=== PATIENT | male | born 1960 | race Caucasian/White ===

== ENCOUNTER 2022-11-21 16:56 | Inpatient (IN) | payer OTHER, SELFPAY ==
[2022-11-21] VITALS (62 sets, daily range): BP systolic 135–189; BP diastolic 88–128; PULSE 88–114; RESP 9–50; TEMP 37.1; O2SAT 67–98; BMI 31.2; BMI 31.6
--- NOTE | 2022-11-21 17:13 | ECG_ITS ---
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
--- NOTE | 2022-11-21 17:13 | XR_ITS ---
The [address] [address] Patient Name: JIM BOOTH MRN: [id number] date: 1960 Sex: M Assigned Patient Location: ED.MAIN Current Patient Location: ER Accession/Order Number: [id number] Exam Date: 11/21/2022 17:40 Report Date: 11/21/2022 17:56 At the request of: WILLOW DAVILA Procedure: XR chest 1V EXAMINATION: XR chest 1V HISTORY: Shortness of breath COMPARISON: Chest x-rays 09/23/2021 TECHNIQUE: Portable chest FINDINGS: The lung parenchyma is free of consolidation or infiltrate. No pneumothorax or pleural effusion. The cardiac, mediastinal and hilar contours are normal. The visualized osseous structures exhibit no gross abnormality. XR/XR chest 1V IMPRESSION: No acute cardiopulmonary abnormality. Electronically authenticated by: NIMA MADSEN Date: 11/21/2022 17:56
--- NOTE | 2022-11-21 17:17 | ED.SOB1 ---
HPI - SOB/Dyspnea General Chief Complaint: Shortness of Breath/Dyspnea Stated Complaint: SOB Time Seen by Provider: 11/21/22 17:05 Source: patient Mode of arrival: Wheelchair Limitations: no limitations History of Present Illness HPI Narrative: patient is a 61-year-old male presents to the Emergency Room with his daughter and brother for evaluation of shortness of breath. Patient recently retired, had a family member eight weeks ago unexpectedly and has been noticing a decline in his health. Patient reports a 30 pound weight loss, increased shortness of breath with activity. He was previously on a inhaler for chronic obstructive pulmonary disease but has been out of this for some time and still smokes more than one pack per day. Patient presents with profound fatigue and shortness of breath on exertion. He denies any current pain or discomfort. Daughter at bedside notes some confusion and home pulse oximetry read very low compared to her own which required a lot of talking the patient into coming in being seen. patient appears hypoxic with increased work of breathing, dusky cool skin..patient admits to having some sinus congestion within the past few weeks. MD elicited complaint: shortness of breath and cough Pertinent past history: COPD Context: recent illness Severity: mild Exacerbating factors: movement (any activity) and stress Relieving factors: nothing Known history of: COPD Related Data Home Medications Medication Instructions Recorded Confirmed No Known Home Medications 11/21/22 11/21/22 Allergies Allergy/AdvReac Type Severity Reaction Status Date / Time Penicillins Allergy Unknown Verified 11/21/22 17:25 Review of Systems ROS Constitutional Reports: change in weight and fatigue; Denies: fever or chills Eyes Denies: change in vision, blurry vision, blind spots or light sensitivity Ears, nose, mouth, and throat Denies: throat pain or neck pain Cardiovascular Reports: edema, shortness of breath when lying down and bluish discoloration of hands/feet; Denies: chest pain or palpitations Respiratory Reports: shortness of breath, cough and wheezing; Denies: pain on inspiration Gastrointestinal Denies: abdominal pain, nausea or vomiting Musculoskeletal Denies: back pain or neck pain Integumentary/Breast Denies: rash or itching Neurological Reports: confusion; Denies: headache Psychiatric Denies: anxiety or mood swings Endocrine Denies: excessive urination [facility] Social History (Updated 11/21/22 @ 23:52 by Christal Atwood) Smoking status: Heavy tobacco smoker Do you think of yourself as: straight/heterosexual Gender Identity: male Exam Narrative Exam Narrative: Nurses notes and vital signs reviewed and patient is hypoxic General: The patient appears well and in no apparent distress. Patient is resting comfortably on cart. Skin: cool pale dusky appearance of skin, bluish tint to hands and feet and nose with telangectasias and notable tobacco staining to his mustache Head: Normocephalic, atraumatic Neck: Supple, trachea mid-line, no tenderness, no lymphadenopathy Eye: Pupils are equal, round and reactive to light, EOMI Ears, Nose, Mouth, and Throat: TM are clear, normal light reflex, oral mucosa is moist, no posterior oropharynx erythema or hypertrophy, uvula is mid-line Cardiovascular: tachycardic Respiratory: no accessory muscle use diffuse expiratory and has notable inspiratory and expiratory wheezing. Chest Wall: no tenderness Back: non-tender, no CVA tenderness Musculoskeletal: normal ROM, no tenderness, minimal edema in the lower legs. GI: Normal bowel sounds, no tenderness to palpation, no masses appreciated. No rebound, guarding, or rigidity noted. Neurological: A&O x4, recalls recent history of caring for family and of family member 8 wks ago. Psychiatric: Cooperative Constitutional Vital Signs, click to edit/add: Last Vital Signs Temp 98.7 F 11/21/22 23:02 Pulse 72 11/22/22 04:30 Resp 16 11/22/22 04:30 BP 110/79 11/22/22 04:30 Pulse Ox 94 L 11/22/22 04:30 O2 Del Method BIPAP 11/21/22 23:13 O2 Flow Rate 4 11/21/22 17:39 FiO2 40 11/22/22 04:30 Course Vital Signs Vital signs: Vital Signs Pulse Rate 114 H 11/21/22 17:08 Respiratory Rate 20 11/21/22 17:08 Blood Pressure 149/106 H 11/21/22 17:08 Pulse Oximetry 68 L 11/21/22 17:08 Oxygen Delivery Method Room Air 11/21/22 17:08 Temperature 98.7 F 11/21/22 23:02 Pulse Rate 72 11/22/22 04:30 Respiratory Rate 16 11/22/22 04:30 Blood Pressure 110/79 11/22/22 04:30 Pulse Oximetry 94 L 11/22/22 04:30 Oxygen Delivery Method BIPAP 11/21/22 23:13 Oxygen Delivery Flow Rate 4 11/21/22 17:39 Fraction of Inspired Oxygen 40 11/22/22 04:30 MDM - SOB/Dyspnea MDM Narrative Medical decision making narrative: clinical presentation concerning for acute on chronic chronic obstructive pulmonary disease exacerbation. Patient not taking home inhaler, chronic smoking abuse, patient has had significant weight loss. Since retiring patient's health has significantly declined... Patient given DuoNeb and albuterol. Solu-Medrol 125 mg IV. Patient placed on oxygen 4 L/m nasal cannula. Patient noting improvement in his breathing after treatments. Pulse oximetry stayed at 90%, compared to 64% on arrival. Patient had chest x-ray without evidence of infiltrate or mass. We discussed his laboratory studies noted for ABG pH is 7.193, elevated lactic 3.0, PCO2 was 80.4. He was hyponatremic at one twenty-one, and troponin was elevated at 149.8 along with BNP of eleven thousand four twenty-five. Patient does not appear to be fluid retaining and was given a 1 L IV fluid bolus for his hyponatremia. Patient adamant about not being admitted to the hospital, bedside conversation with Dr. layton discussing today's findings with concern of if patient signs out against medical advice. The patient agrees to stay at this hospital facility but would not accept a transfer to any other facility at this time. He declines transfer to tertiary facility. This case will be discussed with the hospitalist for admission and at some point likely pulmonary consult given the chronicity chronic obstructive pulmonary disease, untreated and tobacco abuse contributing to his symptoms with acute exacerbation. Hospitalist paged by Dr. Layton, Dr. Falcon will discuss admission Lab Data Attestation: I reviewed the patient's lab results. Labs: Lab Results 11/21/22 11/21/22 11/21/22 Range/Units 17:25 17:40 17:58 WBC 5.6 (4.0-11.0) 10^3/uL RBC 5.69 (4.70-6.10) 10^6/uL Hgb 18.6 H (14.0-18.0) g/dL Hct 57.4 H (42.0-54.0) % MCV 100.9 H (80.0-94.0) fL MCH 32.7 (25.9-34.0) pg MCHC 32.4 (29.9-35.2) g/dL RDW 13.3 (11.0-15.0) % Plt Count 210 (150-450) 10^3/uL MPV 9.9 (9.5-13.5) fL Neut % (Auto) 65.1 (43.0-75.0) % Lymph % (Auto) 17.1 L (20.5-60.0) % [place] % (Auto) 14.2 H (1.7-12.0) % Eos % (Auto) 2.7 (0.9-7.0) % Baso % (Auto) 0.5 (0.2-2.0) % Neut # (Auto) 3.6 (1.4-6.5) 10^3/uL Lymph # (Auto) 1.0 L (1.2-3.8) 10^3/uL [place] # (Auto) 0.8 (0.3-0.8) 10^3/uL Eos # (Auto) 0.2 (0.0-0.7) 10^3/uL Baso # (Auto) 0.0 (0.0-0.1) 10^3/uL Abs Immat Gran (auto) 0.02 (0.00-0.03) 10^3/uL Imm/Tot Granulo (auto) 0.4 (0.0-0.5) % PT 12.0 H (9.0-11.6) sec INR 1.14 APTT 30.9 (22.3-36.2) sec D-Dimer 2.49 H* (<=0.59) mg/L FEU Puncture Site Rr ABG pH 7.193 L* (7.350-7.450) ABG pCO2 88.4 H* (35.0-45.0) mmHg ABG pO2 93.1 (80.0-100.0) mmHg ABG HCO3 33.9 H (22.0-26.0) mmol/L ABG O2 Saturation 96.0 % ABG Base Excess 5.8 H (-2.0-2.0) mmol/L Bogdan Test Positive (POSITIVE) O2 Liters/Min 4 Sodium 121 L* (136-145) mmol/L Potassium 4.8 (3.5-5.1) mmol/L Chloride 84 L* (98-107) mmol/L Carbon Dioxide 33.2 H (21.0-32.0) mmol/L Anion Gap 8.6 BUN 33.0 H (7.0-18.0) mg/dL Creatinine 1.25 (0.70-1.30) mg/dL Est GFR ( Amer) >60 (>=60) Est GFR (Non-Af Amer) 59 L (>=60) BUN/Creatinine Ratio 26.4 Glucose 128 H (74-106) mg/dL Lactate 3.0 H* (0.4-2.0) mmol/L Calcium 8.5 (8.5-10.1) mg/dL Total Bilirubin 0.9 (0.2-1.0) mg/dL AST 64 H (15-37) U/L ALT 66 H (16-63) U/L Alkaline Phosphatase 74 (46-116) U/L Troponin I High Sens 149.8 H* (4.0-76.1) pg/mL NT-Pro-B Natriuret Pep 02325.0 H* (<=900.0) pg/mL Total Protein 7.7 (6.4-8.2) g/dL Albumin 3.7 (3.4-5.0) g/dL Globulin 4.0 g/dL Albumin/Globulin Ratio 0.9 Urine Color (YELLOW) Urine Clarity (CLEAR) Urine pH (5.0-9.0) Ur Specific [place] (1.005-1.025) Urine Protein (NEG/TRACE) mg/dL Urine Glucose (UA) (NEGATIVE) mg/dL Urine Ketones (NEGATIVE) mg/dL Urine Occult Blood (NEGATIVE) Urine Nitrite (NEGATIVE) Urine Bilirubin (NEGATIVE) Urine Urobilinogen (0.2-1.0) EU/dL Ur Leukocyte Esterase (NEGATIVE) Urine RBC (0-2) #/HPF Urine WBC (NONE SEEN) #/HPF Ur Squamous Epith Cells (NONE/RARE) #/LPF Urine Crystals (None Seen) #/HPF Urine Bacteria (NONE SEEN) #/HPF Urine Casts (NONE SEEN) #/LPF Hyaline Casts Fine Granular Casts Waxy Casts Urine Mucus (NONE SEEN) Ur Culture Indicated? SARS-CoV-2 (PCR) Negative (NEGATIVE) Influenza Type A Ag Negative Influenza Type B Ag Negative SARS-CoV-2 RNA (ANTIONE) Not detected (NOT DETECTE) POC Glucose (74-106) mg/dL 11/21/22 11/21/22 11/21/22 Range/Units 19:20 19:23 20:25 WBC (4.0-11.0) 10^3/uL RBC (4.70-6.10) 10^6/uL Hgb (14.0-18.0) g/dL Hct (42.0-54.0) % MCV (80.0-94.0) fL MCH (25.9-34.0) pg MCHC (29.9-35.2) g/dL RDW (11.0-15.0) % Plt Count (150-450) 10^3/uL MPV (9.5-13.5) fL Neut % (Auto) (43.0-75.0) % Lymph % (Auto) (20.5-60.0) % [place] % (Auto) (1.7-12.0) % Eos % (Auto) (0.9-7.0) % Baso % (Auto) (0.2-2.0) % Neut # (Auto) (1.4-6.5) 10^3/uL Lymph # (Auto) (1.2-3.8) 10^3/uL [place] # (Auto) (0.3-0.8) 10^3/uL Eos # (Auto) (0.0-0.7) 10^3/uL Baso # (Auto) (0.0-0.1) 10^3/uL Abs Immat Gran (auto) (0.00-0.03) 10^3/uL Imm/Tot Granulo (auto) (0.0-0.5) % PT (9.0-11.6) sec INR APTT (22.3-36.2) sec D-Dimer (<=0.59) mg/L FEU Puncture Site ABG pH (7.350-7.450) ABG pCO2 (35.0-45.0) mmHg ABG pO2 (80.0-100.0) mmHg ABG HCO3 (22.0-26.0) mmol/L ABG O2 Saturation % ABG Base Excess (-2.0-2.0) mmol/L Bogdan Test (POSITIVE) O2 Liters/Min Sodium (136-145) mmol/L Potassium (3.5-5.1) mmol/L Chloride (98-107) mmol/L Carbon Dioxide (21.0-32.0) mmol/L Anion Gap BUN (7.0-18.0) mg/dL Creatinine (0.70-1.30) mg/dL Est GFR ( Amer) (>=60) Est GFR (Non-Af Amer) (>=60) BUN/Creatinine Ratio Glucose (74-106) mg/dL Lactate 1.2 (0.4-2.0) mmol/L Calcium (8.5-10.1) mg/dL Total Bilirubin (0.2-1.0) mg/dL AST (15-37) U/L ALT (16-63) U/L Alkaline Phosphatase (46-116) U/L Troponin I High Sens 138.4 H* (4.0-76.1) pg/mL NT-Pro-B Natriuret Pep (<=900.0) pg/mL Total Protein (6.4-8.2) g/dL Albumin (3.4-5.0) g/dL Globulin g/dL Albumin/Globulin Ratio Urine Color (YELLOW) Urine Clarity (CLEAR) Urine pH (5.0-9.0) Ur Specific [place] (1.005-1.025) Urine Protein (NEG/TRACE) mg/dL Urine Glucose (UA) (NEGATIVE) mg/dL Urine Ketones (NEGATIVE) mg/dL Urine Occult Blood (NEGATIVE) Urine Nitrite (NEGATIVE) Urine Bilirubin (NEGATIVE) Urine Urobilinogen (0.2-1.0) EU/dL Ur Leukocyte Esterase (NEGATIVE) Urine RBC (0-2) #/HPF Urine WBC (NONE SEEN) #/HPF Ur Squamous Epith Cells (NONE/RARE) #/LPF Urine Crystals (None Seen) #/HPF Urine Bacteria (NONE SEEN) #/HPF Urine Casts (NONE SEEN) #/LPF Hyaline Casts Fine Granular Casts Waxy Casts Urine Mucus (NONE SEEN) Ur Culture Indicated? SARS-CoV-2 (PCR) (NEGATIVE) Influenza Type A Ag Influenza Type B Ag SARS-CoV-2 RNA (ANTIONE) (NOT DETECTE) POC Glucose 126 H (74-106) mg/dL 11/21/22 Range/Units 21:10 WBC (4.0-11.0) 10^3/uL RBC (4.70-6.10) 10^6/uL Hgb (14.0-18.0) g/dL Hct (42.0-54.0) % MCV (80.0-94.0) fL MCH (25.9-34.0) pg MCHC (29.9-35.2) g/dL RDW (11.0-15.0) % Plt Count (150-450) 10^3/uL MPV (9.5-13.5) fL Neut % (Auto) (43.0-75.0) % Lymph % (Auto) (20.5-60.0) % [place] % (Auto) (1.7-12.0) % Eos % (Auto) (0.9-7.0) % Baso % (Auto) (0.2-2.0) % Neut # (Auto) (1.4-6.5) 10^3/uL Lymph # (Auto) (1.2-3.8) 10^3/uL [place] # (Auto) (0.3-0.8) 10^3/uL Eos # (Auto) (0.0-0.7) 10^3/uL Baso # (Auto) (0.0-0.1) 10^3/uL Abs Immat Gran (auto) (0.00-0.03) 10^3/uL Imm/Tot Granulo (auto) (0.0-0.5) % PT (9.0-11.6) sec INR APTT (22.3-36.2) sec D-Dimer (<=0.59) mg/L FEU Puncture Site ABG pH (7.350-7.450) ABG pCO2 (35.0-45.0) mmHg ABG pO2 (80.0-100.0) mmHg ABG HCO3 (22.0-26.0) mmol/L ABG O2 Saturation % ABG Base Excess (-2.0-2.0) mmol/L Bogdan Test (POSITIVE) O2 Liters/Min Sodium (136-145) mmol/L Potassium (3.5-5.1) mmol/L Chloride (98-107) mmol/L Carbon Dioxide (21.0-32.0) mmol/L Anion Gap BUN (7.0-18.0) mg/dL Creatinine (0.70-1.30) mg/dL Est GFR ( Amer) (>=60) Est GFR (Non-Af Amer) (>=60) BUN/Creatinine Ratio Glucose (74-106) mg/dL Lactate (0.4-2.0) mmol/L Calcium (8.5-10.1) mg/dL Total Bilirubin (0.2-1.0) mg/dL AST (15-37) U/L ALT (16-63) U/L Alkaline Phosphatase (46-116) U/L Troponin I High Sens (4.0-76.1) pg/mL NT-Pro-B Natriuret Pep (<=900.0) pg/mL Total Protein (6.4-8.2) g/dL Albumin (3.4-5.0) g/dL Globulin g/dL Albumin/Globulin Ratio Urine Color Yellow (YELLOW) Urine Clarity Clear (CLEAR) Urine pH 5.5 (5.0-9.0) Ur Specific [place] >=1.030 A (1.005-1.025) Urine Protein >=300 A (NEG/TRACE) mg/dL Urine Glucose (UA) Negative (NEGATIVE) mg/dL Urine Ketones Negative (NEGATIVE) mg/dL Urine Occult Blood Moderate A (NEGATIVE) Urine Nitrite Negative (NEGATIVE) Urine Bilirubin Small A (NEGATIVE) Urine Urobilinogen 1.0 (0.2-1.0) EU/dL Ur Leukocyte Esterase Negative (NEGATIVE) Urine RBC 0-2 (0-2) #/HPF Urine WBC 0-2 A (NONE SEEN) #/HPF Ur Squamous Epith Cells Few A (NONE/RARE) #/LPF Urine Crystals None seen (None Seen) #/HPF Urine Bacteria Large A (NONE SEEN) #/HPF Urine Casts Seen A (NONE SEEN) #/LPF Hyaline Casts Many Fine Granular Casts Few Waxy Casts Rare Urine Mucus Moderate A (NONE SEEN) Ur Culture Indicated? Yes SARS-CoV-2 (PCR) (NEGATIVE) Influenza Type A Ag Influenza Type B Ag SARS-CoV-2 RNA (ANTIONE) (NOT DETECTE) POC Glucose (74-106) mg/dL ABG Data Attestation: I have reviewed the pertinent ABG results. Imaging Data Chest x-ray: Attestation: I have reviewed the pertinent imaging results. Radiologist's impression: Patient Name: JIM BOOTH MRN: [id number] date: 1960 Sex: M Assigned Patient Location: ED.MAIN Current Patient Location: ER Accession/Order Number: [id number] Exam Date: 11/21/2022 17:40 Report Date: 11/21/2022 17:56 At the request of: WILLOW DAVILA Procedure: XR chest 1V EXAMINATION: XR chest 1V HISTORY: Shortness of breath COMPARISON: Chest x-rays 09/23/2021 TECHNIQUE: Portable chest FINDINGS: The lung parenchyma is free of consolidation or infiltrate. No pneumothorax or pleural effusion. The cardiac, mediastinal and hilar contours are normal. The visualized osseous structures exhibit no gross abnormality. XR/XR chest 1V IMPRESSION: No acute cardiopulmonary abnormality. Electronically authenticated by: NIMA MADSEN Date: 11/21/2022 17:56 ECG Data Attestation: I personally reviewed and interpreted this ECG as follows: Interpretation: EKG interpretation: Emergency Department physician interpretation, sinus tachycardia, incomplete right bundle-branch block.no st elevation. axis indeterminate. Discharge Plan Discharge Chief Complaint: Shortness of Breath/Dyspnea Clinical Impression: Hyponatremia, Elevated troponin, Tobacco abuse, Hypoxia, Acute exacerbation of chronic obstructive pulmonary disease Patient Disposition: Admitted As Inpatient Time of Disposition Decision: 19:08 Condition: Fair Discharge Date/Time: 11/21/22 22:49
[2022-11-21] MEDS: IPRATROPIUM/ALBUTEROL SULFATE 3 ML AMPUL.NEB IH (17:37)
[2022-11-21] MEDS: ALBUTEROL SULFATE 2.5 MG/3 ML VIAL NEB IH (17:37)
[2022-11-21 17:46] LABS: Basophils Percent Auto 0.5 % (0.2-2.0); Eosinophils Absolute Auto 0.2 10^3/uL (0.0-0.7); Eosinophils Percent Auto 2.7 % (0.9-7.0); Hematocrit 57.4 % (42.0-54.0); Hemoglobin 18.6 g/dL (14.0-18.0); Immature Granulocytes Abs Auto 0.02 10^3/uL (0.00-0.03); Immature Granulocytes Pct Auto 0.4 % (0.0-0.5); Lymphocytes Percent Auto 17.1 % (20.5-60.0); Mean Corpuscular HGB Conc 32.4 g/dL (29.9-35.2); Mean Corpuscular Hemoglobin 32.7 pg (25.9-34.0); Mean Corpuscular Volume 100.9 fL (80.0-94.0); Mean Platelet Volume 9.9 fL (9.5-13.5); Monocytes Absolute Auto 0.8 10^3/uL (0.3-0.8); Monocytes Percent Auto 14.2 % (1.7-12.0); Neutrophils Absolute Auto 3.6 10^3/uL (1.4-6.5); Neutrophils Percent Auto 65.1 % (43.0-75.0); Platelet Count 210 10^3/uL (150-450); Red Blood Count 5.69 10^6/uL (4.70-6.10); Red Cell Distribution Width 13.3 % (11.0-15.0); White Blood Count 5.6 10^3/uL (4.0-11.0)
[2022-11-21] MEDS: METHYLPREDNISOLONE SOD SUCC PF 125 MG/2 ML VIAL IVP (17:47)
[2022-11-21 18:08] LABS: Influenza Virus A Antigen Negative; Influenza Virus B Antigen Negative; Internal Control Within Normal Limits; SARS-CoV-2 Ag NEGATIVE (NEGATIVE)
[2022-11-21 18:14] LABS: Alanine Aminotransferase 66 U/L (16-63); Albumin Globulin Ratio 0.9; Albumin Level 3.7 g/dL (3.4-5.0); Alkaline Phosphatase 74 U/L (46-116); Anion Gap 8.6; Aspartate Amino Transferase 64 U/L (15-37); BUN Creatinine Ratio 26.4; Bilirubin Total 0.9 mg/dL (0.2-1.0); Calcium 8.5 mg/dL (8.5-10.1); Carbon Dioxide 33.2 mmol/L (21.0-32.0); Estimated GFR (African America >60 (>=60); Estimated GFR (Non-African Ame 59 (>=60); Glucose 128 mg/dL (74-106); Potassium 4.8 mmol/L (3.5-5.1); Total Protein 7.7 g/dL (6.4-8.2)
[2022-11-21 18:16] LABS: Chloride 84 mmol/L (98-107); Troponin I High Sensitivity 149.8 pg/mL (4.0-76.1)
[2022-11-21 18:17] LABS: Sodium 121 mmol/L (136-145)
[2022-11-21 18:17] LABS: ABG PCO2 88.4 mmHg (35.0-45.0); pH ABG 7.193 (7.350-7.450)
[2022-11-21 18:18] LABS: Allen Test POSITIVE (POSITIVE); Base Excess ABG 5.8 mmol/L (-2.0-2.0); HCO3 ABG 33.9 mmol/L (22.0-26.0); Liters per Minute 4; O2 Mode NC; PO2 ABG 93.1 mmHg (80.0-100.0); Puncture Site RR
[2022-11-21] MEDS: 0.9 % SODIUM CHLORIDE 1,000 ML 999 ML IV (18:35)
[2022-11-21] MEDS: NICOTINE 21 MG PATCH TD (19:15)
[2022-11-21 19:25] LABS: Glucometer 126 mg/dL (74-106)
[2022-11-21] MEDS: AZITHROMYCIN 500 MG in 0.9 % SODIUM CHLORIDE 250 ML 250 MG IV (19:32)
[2022-11-21] MEDS: CEFTRIAXONE 1,000 MG in 0.9 % SODIUM CHLORIDE 50 ML 100 MG IV (19:33)
[2022-11-21 19:41] LABS: INR 1.14; Partial Thromboplastin Time 30.9 sec (22.3-36.2)
[2022-11-21 19:43] LABS: D Dimer 2.49 mg/L FEU (<=0.59)
--- NOTE | 2022-11-21 19:43 | CT_ITS ---
The [address] [address] Patient Name: JIM BOOTH MRN: [id number] date: 1960 Sex: M Assigned Patient Location: ER Current Patient Location: Accession/Order Number: [id number] Exam Date: 11/21/2022 19:58 Report Date: 11/21/2022 21:29 At the request of: WILLOW DAVILA Procedure: CT angio chest EXAM: CT angio chest TECHNIQUE: CT angiogram with contrast performed of the chest including multi planar reformatted images and maximum intensity projection images. 3-D volume rendering created. Dose reduction techniques were achieved by using automated exposure control and/or adjustment of mA and/or kV according to patient size and/or use of iterative reconstruction technique. HISTORY: r/o pE elevated d-dimer COMPARISON: None. FINDINGS: Neck and Axilla: No lower neck or axillary lymphadenopathy. Mediastinum and Lisa: No hilar or mediastinal lymphadenopathy. The esophagus is grossly unremarkable without dilatation or gross mass lesion. Heart and Major Vessels: The heart appears unremarkable for size without pericardial effusion. The aorta and central pulmonary arteries are unremarkable for size.Evaluation of the pulmonary embolism is limited by breathing motion artifact. There is no convincing evidence for acute pulmonary embolism. Lung [place]: The lungs are clear of acute infiltrate or mass. Pleural Spaces: No significant pleural effusion. No pneumothorax. Upper Abdomen: No acute abnormality identified. Chest Wall: No acute abnormality. CT/CT angio chest IMPRESSION: No evidence for acute pulmonary embolism. Evaluation somewhat limited for distal pulmonary arteries due to motion artifact. No acute pulmonary consolidation Electronically authenticated by: BHARATHI VILLAFUERTE Date: 11/21/2022 21:29
[2022-11-21 19:49] LABS: Troponin I High Sensitivity 138.4 pg/mL (4.0-76.1)
--- NOTE | 2022-11-21 20:02 | PC.NURSE ---
on entry to patient room, patient is ill appearing, short of breath and sitting on edge of bed in tripod position. He is wearing oxygen at 4 liters per nasal cannula with SPo2 89-90%. Family is at bedside, states he is more tired than normal, he is confused and he has not been able to sleep for several days due to both shortness of breath and the stress of taking care of his . He had asked for a cigarette, but a nicotine patch was offered instead. He has reluctantly agreed to stay in the hospital for the night. He is offered food and water but has not taken in anything yet. He is moved to a wheelchair because it is easier for him to breathe sitting up in it. Family had many questions, all of which were answered. Family is given his room number and have left for the night.
[2022-11-21 20:53] LABS: Lactate/Lactic Acid 1.2 mmol/L (0.4-2.0)
[2022-11-21] MEDS: LORAZEPAM 2 MG/ML 1 ML VIAL 0.5 MG IV (21:15)
[2022-11-21 21:23] LABS: Bilirubin Urine SMALL (NEGATIVE); Blood Urine MODERATE (NEGATIVE); Clarity Urine CLEAR (CLEAR); Color Urine YELLOW (YELLOW); Glucose Urine UA NEGATIVE (NEGATIVE); Ketones Urine NEGATIVE (NEGATIVE); Leukocyte Esterase Urine NEGATIVE (NEGATIVE); Nitrite Urine NEGATIVE (NEGATIVE); Protein Urine >=300 mg/dL (NEG/TRACE); Specific Gravity Urine >=1.030 (1.005-1.025); Urine Microscopic Indicated YES; pH Urine 5.5 (5.0-9.0)
[2022-11-21 21:31] LABS: Bacteria Urine LARGE #/HPF (NONE SEEN); Cast Seen? SEEN #/LPF (NONE SEEN); Crystals Seen? None Seen #/HPF (None Seen); Fine Granular Casts Urine FEW; Hyaline Casts Urine MANY; Mucus Urine MODERATE (NONE SEEN); RBC Urine 0-2 #/HPF (0-2); Squamous Epithelial Cell Urine FEW #/LPF (NONE/RARE); WBC Urine 0-2 #/HPF (NONE SEEN); Waxy Casts Urine RARE
[2022-11-21 21:32] LABS: Urine Culture Indicated YES
--- NOTE | 2022-11-21 22:00 | RESP.RT ---
Pt taken off cannula and placed on Bipap at this time. 29/09 Fi02 50%
--- NOTE | 2022-11-21 22:05 | PC.NURSE ---
After Ativan was given, patient was able to relax, breathing was slowing down and SPo2 was maintaining in the low 90s. Patient started to desat, SPo2 falling into the 70s, oxygen was turned up and simple mask applied. There was no increase with this, so another nurse left to find physician while this RN applied nonrebreather. SPo2 did respond and went to the 90's however Dr Falcon wanted the non rebreather removed for fear of increased CO2 retention. At this time, patient was also given 0.3 of FLumazenil because he was in respiratory distress and was not easily arousable after the ativan. Another 0.2 of flumazenil was given and patient dwas arousable and started to open his eyes. He was also restless, attempting to climb out of bed, fighting against attempts at a second IV. Respiratory was called and asked to apply Bipap. Patient is now on bipap with respiratory still at bedside. Patient is resting and vitals are improved at this time. Will continue to monitor
[2022-11-21] MEDS: FLUMAZENIL 0.5 MG/5 ML VIAL IV (22:32)
--- NOTE | 2022-11-21 22:37 | ED_ITS ---
HPI - General Adult General Chief complaint: Shortness of Breath/Dyspnea Stated complaint: SOB Time Seen by Provider: 11/21/22 17:05 Source: patient Mode of arrival: Wheelchair Limitations: no limitations History of Present Illness HPI narrative: please see full history and physical. Related Data Allergies Allergy/AdvReac Type Severity Reaction Status Date / Time Penicillins Allergy Unknown Verified 11/21/22 17:25 PFSH PFSH Social History Smoking status: Current every day smoker Exam Constitutional Vital Signs, click to edit/add: Last Vital Signs Pulse 94 H 11/21/22 22:15 Resp 27 H 11/21/22 22:15 BP 135/88 11/21/22 22:15 Pulse Ox 89 L 11/21/22 22:15 O2 Del Method Nasal Cannula 11/21/22 17:39 O2 Flow Rate 4 11/21/22 17:39 FiO2 50 11/21/22 22:00 Course Vital Signs Vital signs: Vital Signs Pulse Rate 114 H 11/21/22 17:08 Respiratory Rate 20 11/21/22 17:08 Blood Pressure 149/106 H 11/21/22 17:08 Pulse Oximetry 68 L 11/21/22 17:08 Oxygen Delivery Method Room Air 11/21/22 17:08 Pulse Rate 94 H 11/21/22 22:15 Respiratory Rate 27 H 11/21/22 22:15 Blood Pressure 135/88 11/21/22 22:15 Pulse Oximetry 89 L 11/21/22 22:15 Oxygen Delivery Method Nasal Cannula 11/21/22 17:39 Oxygen Delivery Flow Rate 4 11/21/22 17:39 Fraction of Inspired Oxygen 50 11/21/22 22:00 Medical Decision Making [facility] Narrative Medical decision making narrative: The patient presents with chronic obstructive pulmonary disease exacerbation. He appears to be a chronic CO2 retainer and is noncompliant. The patient became somewhat drowsy and was placed on BiPAP and is being admitted to the ICU. He continues to be hemodynamically stable with an O2 sat of ninety percent. Repeat troponin has decreased. Differential Diagnosis Differential Diagnosis: pneumonia, chronic obstructive pulmonary disease exacerbation Lab Data Lab results reviewed: Yes I reviewed the patient's lab results Labs: Lab Results 11/21/22 11/21/22 11/21/22 Range/Units 17:25 17:40 17:58 WBC 5.6 (4.0-11.0) 10^3/uL RBC 5.69 (4.70-6.10) 10^6/uL Hgb 18.6 H (14.0-18.0) g/dL Hct 57.4 H (42.0-54.0) % MCV 100.9 H (80.0-94.0) fL MCH 32.7 (25.9-34.0) pg MCHC 32.4 (29.9-35.2) g/dL RDW 13.3 (11.0-15.0) % Plt Count 210 (150-450) 10^3/uL MPV 9.9 (9.5-13.5) fL Neut % (Auto) 65.1 (43.0-75.0) % Lymph % (Auto) 17.1 L (20.5-60.0) % Hughes % (Auto) 14.2 H (1.7-12.0) % Eos % (Auto) 2.7 (0.9-7.0) % Baso % (Auto) 0.5 (0.2-2.0) % Neut # (Auto) 3.6 (1.4-6.5) 10^3/uL Lymph # (Auto) 1.0 L (1.2-3.8) 10^3/uL Hughes # (Auto) 0.8 (0.3-0.8) 10^3/uL Eos # (Auto) 0.2 (0.0-0.7) 10^3/uL Baso # (Auto) 0.0 (0.0-0.1) 10^3/uL Abs Immat Gran (auto) 0.02 (0.00-0.03) 10^3/uL Imm/Tot Granulo (auto) 0.4 (0.0-0.5) % PT 12.0 H (9.0-11.6) sec INR 1.14 APTT 30.9 (22.3-36.2) sec D-Dimer 2.49 H* (<=0.59) mg/L FEU Puncture Site Rr ABG pH 7.193 L* (7.350-7.450) ABG pCO2 88.4 H* (35.0-45.0) mmHg ABG pO2 93.1 (80.0-100.0) mmHg ABG HCO3 33.9 H (22.0-26.0) mmol/L ABG O2 Saturation 96.0 % ABG Base Excess 5.8 H (-2.0-2.0) mmol/L Bogdan Test Positive (POSITIVE) O2 Liters/Min 4 Sodium 121 L* (136-145) mmol/L Potassium 4.8 (3.5-5.1) mmol/L Chloride 84 L* (98-107) mmol/L Carbon Dioxide 33.2 H (21.0-32.0) mmol/L Anion Gap 8.6 BUN 33.0 H (7.0-18.0) mg/dL Creatinine 1.25 (0.70-1.30) mg/dL Est GFR ( Amer) >60 (>=60) Est GFR (Non-Af Amer) 59 L (>=60) BUN/Creatinine Ratio 26.4 Glucose 128 H (74-106) mg/dL Lactate 3.0 H* (0.4-2.0) mmol/L Calcium 8.5 (8.5-10.1) mg/dL Total Bilirubin 0.9 (0.2-1.0) mg/dL AST 64 H (15-37) U/L ALT 66 H (16-63) U/L Alkaline Phosphatase 74 (46-116) U/L Troponin I High Sens 149.8 H* (4.0-76.1) pg/mL NT-Pro-B Natriuret Pep 58923.0 H* (<=900.0) pg/mL Total Protein 7.7 (6.4-8.2) g/dL Albumin 3.7 (3.4-5.0) g/dL Globulin 4.0 g/dL Albumin/Globulin Ratio 0.9 Urine Color (YELLOW) Urine Clarity (CLEAR) Urine pH (5.0-9.0) Ur Specific [place] (1.005-1.025) Urine Protein (NEG/TRACE) mg/dL Urine Glucose (UA) (NEGATIVE) mg/dL Urine Ketones (NEGATIVE) mg/dL Urine Occult Blood (NEGATIVE) Urine Nitrite (NEGATIVE) Urine Bilirubin (NEGATIVE) Urine Urobilinogen (0.2-1.0) EU/dL Ur Leukocyte Esterase (NEGATIVE) Urine RBC (0-2) #/HPF Urine WBC (NONE SEEN) #/HPF Ur Squamous Epith Cells (NONE/RARE) #/LPF Urine Crystals (None Seen) #/HPF Urine Bacteria (NONE SEEN) #/HPF Urine Casts (NONE SEEN) #/LPF Hyaline Casts Fine Granular Casts Waxy Casts Urine Mucus (NONE SEEN) Ur Culture Indicated? SARS-CoV-2 (PCR) Negative (NEGATIVE) Influenza Type A Ag Negative Influenza Type B Ag Negative POC Glucose (74-106) mg/dL 11/21/22 11/21/22 11/21/22 Range/Units 19:20 19:23 20:25 WBC (4.0-11.0) 10^3/uL RBC (4.70-6.10) 10^6/uL Hgb (14.0-18.0) g/dL Hct (42.0-54.0) % MCV (80.0-94.0) fL MCH (25.9-34.0) pg MCHC (29.9-35.2) g/dL RDW (11.0-15.0) % Plt Count (150-450) 10^3/uL MPV (9.5-13.5) fL Neut % (Auto) (43.0-75.0) % Lymph % (Auto) (20.5-60.0) % Hughes % (Auto) (1.7-12.0) % Eos % (Auto) (0.9-7.0) % Baso % (Auto) (0.2-2.0) % Neut # (Auto) (1.4-6.5) 10^3/uL Lymph # (Auto) (1.2-3.8) 10^3/uL Hughes # (Auto) (0.3-0.8) 10^3/uL Eos # (Auto) (0.0-0.7) 10^3/uL Baso # (Auto) (0.0-0.1) 10^3/uL Abs Immat Gran (auto) (0.00-0.03) 10^3/uL Imm/Tot Granulo (auto) (0.0-0.5) % PT (9.0-11.6) sec INR APTT (22.3-36.2) sec D-Dimer (<=0.59) mg/L FEU Puncture Site ABG pH (7.350-7.450) ABG pCO2 (35.0-45.0) mmHg ABG pO2 (80.0-100.0) mmHg ABG HCO3 (22.0-26.0) mmol/L ABG O2 Saturation % ABG Base Excess (-2.0-2.0) mmol/L Bogdan Test (POSITIVE) O2 Liters/Min Sodium (136-145) mmol/L Potassium (3.5-5.1) mmol/L Chloride (98-107) mmol/L Carbon Dioxide (21.0-32.0) mmol/L Anion Gap BUN (7.0-18.0) mg/dL Creatinine (0.70-1.30) mg/dL Est GFR ( Amer) (>=60) Est GFR (Non-Af Amer) (>=60) BUN/Creatinine Ratio Glucose (74-106) mg/dL Lactate 1.2 (0.4-2.0) mmol/L Calcium (8.5-10.1) mg/dL Total Bilirubin (0.2-1.0) mg/dL AST (15-37) U/L ALT (16-63) U/L Alkaline Phosphatase (46-116) U/L Troponin I High Sens 138.4 H* (4.0-76.1) pg/mL NT-Pro-B Natriuret Pep (<=900.0) pg/mL Total Protein (6.4-8.2) g/dL Albumin (3.4-5.0) g/dL Globulin g/dL Albumin/Globulin Ratio Urine Color (YELLOW) Urine Clarity (CLEAR) Urine pH (5.0-9.0) Ur Specific [place] (1.005-1.025) Urine Protein (NEG/TRACE) mg/dL Urine Glucose (UA) (NEGATIVE) mg/dL Urine Ketones (NEGATIVE) mg/dL Urine Occult Blood (NEGATIVE) Urine Nitrite (NEGATIVE) Urine Bilirubin (NEGATIVE) Urine Urobilinogen (0.2-1.0) EU/dL Ur Leukocyte Esterase (NEGATIVE) Urine RBC (0-2) #/HPF Urine WBC (NONE SEEN) #/HPF Ur Squamous Epith Cells (NONE/RARE) #/LPF Urine Crystals (None Seen) #/HPF Urine Bacteria (NONE SEEN) #/HPF Urine Casts (NONE SEEN) #/LPF Hyaline Casts Fine Granular Casts Waxy Casts Urine Mucus (NONE SEEN) Ur Culture Indicated? SARS-CoV-2 (PCR) (NEGATIVE) Influenza Type A Ag Influenza Type B Ag POC Glucose 126 H (74-106) mg/dL 11/21/22 Range/Units 21:10 WBC (4.0-11.0) 10^3/uL RBC (4.70-6.10) 10^6/uL Hgb (14.0-18.0) g/dL Hct (42.0-54.0) % MCV (80.0-94.0) fL MCH (25.9-34.0) pg MCHC (29.9-35.2) g/dL RDW (11.0-15.0) % Plt Count (150-450) 10^3/uL MPV (9.5-13.5) fL Neut % (Auto) (43.0-75.0) % Lymph % (Auto) (20.5-60.0) % Hughes % (Auto) (1.7-12.0) % Eos % (Auto) (0.9-7.0) % Baso % (Auto) (0.2-2.0) % Neut # (Auto) (1.4-6.5) 10^3/uL Lymph # (Auto) (1.2-3.8) 10^3/uL Hughes # (Auto) (0.3-0.8) 10^3/uL Eos # (Auto) (0.0-0.7) 10^3/uL Baso # (Auto) (0.0-0.1) 10^3/uL Abs Immat Gran (auto) (0.00-0.03) 10^3/uL Imm/Tot Granulo (auto) (0.0-0.5) % PT (9.0-11.6) sec INR APTT (22.3-36.2) sec D-Dimer (<=0.59) mg/L FEU Puncture Site ABG pH (7.350-7.450) ABG pCO2 (35.0-45.0) mmHg ABG pO2 (80.0-100.0) mmHg ABG HCO3 (22.0-26.0) mmol/L ABG O2 Saturation % ABG Base Excess (-2.0-2.0) mmol/L Bogdan Test (POSITIVE) O2 Liters/Min Sodium (136-145) mmol/L Potassium (3.5-5.1) mmol/L Chloride (98-107) mmol/L Carbon Dioxide (21.0-32.0) mmol/L Anion Gap BUN (7.0-18.0) mg/dL Creatinine (0.70-1.30) mg/dL Est GFR ( Amer) (>=60) Est GFR (Non-Af Amer) (>=60) BUN/Creatinine Ratio Glucose (74-106) mg/dL Lactate (0.4-2.0) mmol/L Calcium (8.5-10.1) mg/dL Total Bilirubin (0.2-1.0) mg/dL AST (15-37) U/L ALT (16-63) U/L Alkaline Phosphatase (46-116) U/L Troponin I High Sens (4.0-76.1) pg/mL NT-Pro-B Natriuret Pep (<=900.0) pg/mL Total Protein (6.4-8.2) g/dL Albumin (3.4-5.0) g/dL Globulin g/dL Albumin/Globulin Ratio Urine Color Yellow (YELLOW) Urine Clarity Clear (CLEAR) Urine pH 5.5 (5.0-9.0) Ur Specific [place] >=1.030 A (1.005-1.025) Urine Protein >=300 A (NEG/TRACE) mg/dL Urine Glucose (UA) Negative (NEGATIVE) mg/dL Urine Ketones Negative (NEGATIVE) mg/dL Urine Occult Blood Moderate A (NEGATIVE) Urine Nitrite Negative (NEGATIVE) Urine Bilirubin Small A (NEGATIVE) Urine Urobilinogen 1.0 (0.2-1.0) EU/dL Ur Leukocyte Esterase Negative (NEGATIVE) Urine RBC 0-2 (0-2) #/HPF Urine WBC 0-2 A (NONE SEEN) #/HPF Ur Squamous Epith Cells Few A (NONE/RARE) #/LPF Urine Crystals None seen (None Seen) #/HPF Urine Bacteria Large A (NONE SEEN) #/HPF Urine Casts Seen A (NONE SEEN) #/LPF Hyaline Casts Many Fine Granular Casts Few Waxy Casts Rare Urine Mucus Moderate A (NONE SEEN) Ur Culture Indicated? Yes SARS-CoV-2 (PCR) (NEGATIVE) Influenza Type A Ag Influenza Type B Ag POC Glucose (74-106) mg/dL Imaging Data CT scan - chest: Radiologist's impression: Procedure: CT angio chest EXAM: CT angio chest TECHNIQUE: CT angiogram with contrast performed of the chest including multi planar reformatted images and maximum intensity projection images. 3-D volume rendering created. Dose reduction techniques were achieved by using automated exposure control and/or adjustment of mA and/or kV according to patient size and/or use of iterative reconstruction technique. HISTORY: r/o pE elevated d-dimer COMPARISON: None. FINDINGS: Neck and Axilla: No lower neck or axillary lymphadenopathy. Mediastinum and Lisa: No hilar or mediastinal lymphadenopathy. The esophagus is grossly unremarkable without dilatation or gross mass lesion. Heart and Major Vessels: The heart appears unremarkable for size without pericardial effusion. The aorta and central pulmonary arteries are unremarkable for size.Evaluation of the pulmonary embolism is limited by breathing motion artifact. There is no convincing evidence for acute pulmonary embolism. Lung [place]: The lungs are clear of acute infiltrate or mass. Pleural Spaces: No significant pleural effusion. No pneumothorax. Upper Abdomen: No acute abnormality identified. Chest Wall: No acute abnormality. IMPRESSION: No evidence for acute pulmonary embolism. Evaluation somewhat limited for distal pulmonary arteries due to motion artifact. No acute pulmonary consolidation Electronically authenticated by: BHARATHI VILLAFUERTE Date: 11/21/2022 Critical Care Time Critical Care Time Critical Care Time: Yes Total Critical Care Time: 45 Attestation: Due to the high probability of sudden and clinically significant deterioration in the patient's condition he/she required the highest level of my preparedness to intervene urgently I provided critical care time including documentation time, medication orders and management, reevaluation, vital sign assessment, ordering and reviewing of lab tests, ordering and reviewing of x-ray studies, and admission orders. Aggregate critical care time is 45 minutes including only time during which I was engaged in work directly related to his/her care and did not include time spent treating other patients simultaneously. Discharge Plan Discharge Chief Complaint: Shortness of Breath/Dyspnea Clinical Impression: Hyponatremia, Elevated troponin, Tobacco abuse, Hypoxia, Acute exacerbation of chronic obstructive pulmonary disease Patient Disposition: Admitted As Inpatient Time of Disposition Decision: 19:08 Condition: Fair
--- NOTE | 2022-11-21 23:00 | RESP.RT ---
decreased Fi02 from 50% down to 40%
[2022-11-22] VITALS (38 sets, daily range): BP systolic 94–165; BP diastolic 66–115; PULSE 70–102; RESP 12–28; O2SAT 86–100
--- NOTE | 2022-11-22 00:03 | W.PM.TELEPN ---
Progress Note: Subjective Subjective Interval history: CC: Shortness of breath, weakness HPI: This is a 61 years old white male with known COPD, smoker, who presents with above complaints. Patient is a poor historian and cannot provide much information. Majority of the data obtained from conversation with ED physician. Evaluation in the emergency room revealed signs of CO2 retention with respiratory acidosis as well as hyponatremia with sodium level 121. Patient agreed to stay in the hospital and agreed to use BiPAP. Currently resting. Exam Narrative Exam Narrative: Physical Exam: Not in distress, very somnolent, responding to pain stimuli Head - atraumatic, eyes - pupils equal, round, reactive to light, extra ocular movement intact, MMM Neck - supple, thyroid not enlarged, LN not palpated Lungs -coarse breath sounds bilaterally, wheezing CVS - heart sounds S1, S2, no additional murmurs gallop, regular rate and rhythm Gastrointestinal?abdomen is soft, non-tender, non-distended, no organomegaly, positive bowel sounds Extremities no clubbing, cyanosis or edema Neurological?cranial nerve II?XII grossly intact, no meningeal signs, no cerebellar signs, no sensory deficit Musculoskeletal - DJD related changes in multiple joints, no effusions, ROM preserved Dermatological - the skin dry, warm, no rashes Constitutional Vital Signs, click to edit/add: Last Vital Signs Temp 98.7 F 11/21/22 23:02 Pulse 88 11/21/22 23:58 Resp 24 11/21/22 23:10 BP 157/99 H 11/21/22 23:02 Pulse Ox 91 L 11/21/22 23:58 O2 Del Method BIPAP 11/21/22 23:13 O2 Flow Rate 4 11/21/22 17:39 FiO2 40 11/21/22 23:13 Progress Note: Objective Labs Labs: Short CBC 11/21/22 Range/Units 17:25 WBC 5.6 (4.0-11.0) 10^3/uL Hgb 18.6 H (14.0-18.0) g/dL Hct 57.4 H (42.0-54.0) % Plt Count 210 (150-450) 10^3/uL BMP 11/21/22 17:25 Sodium 121 L* Potassium 4.8 Chloride 84 L* Carbon Dioxide 33.2 H BUN 33.0 H Creatinine 1.25 Glucose 128 H Calcium 8.5 Liver Function 11/21/22 Range/Units 17:25 Total Bilirubin 0.9 (0.2-1.0) mg/dL AST 64 H (15-37) U/L ALT 66 H (16-63) U/L Alkaline Phosphatase 74 (46-116) U/L Albumin 3.7 (3.4-5.0) g/dL Urine 11/21/22 Range/Units 21:10 Urine Color Yellow (YELLOW) Urine Clarity Clear (CLEAR) Urine pH 5.5 (5.0-9.0) Ur Specific [place] >=1.030 A (1.005-1.025) Urine Protein >=300 A (NEG/TRACE) mg/dL Urine Glucose (UA) Negative (NEGATIVE) mg/dL Progress Note: A&P Assessment and Plan (1) Acute exacerbation of chronic obstructive pulmonary disease: Assessment and Plan: COPD exacerbation with respiratory failure combined hypoxemic and hypercapnia - admit to inpatient for close monitoring - O2 supplementation - RT assessment - inhaled and systemic steroids - inhaled bronchodilators - will order sputum Cx and Gramm stain - empiric, broad spectrum ABxs - Continue with BiPAP for CO2 retention. I am planning to recheck ABGs within 2 hours of BiPAP treatment. If no improvement?intubation going to be considered - F/U Cxs - tailor ABxs accordingly - Acute respiratory acidosis?as above (2) Tobacco abuse: Assessment and Plan: I am going to start patient on nicotine patch (3) Hyponatremia: Assessment and Plan: Hyponatremia?reason unclear Suspect chronic We will check urine and serum osmolarity We will check random urine creatinine and protein I am going to check urine sodium excretion Going to check sodium level every 4 hours. Goal of correction?6-8 mEq / 24 hours (4) Elevated troponin: Assessment and Plan: Most probably demand ischemia Continue to trend Going to order echocardiogram Plan As the provider for the telehealth service, I attest that I introduced myself to the patient, provided my credentials, disclosed by location and determined that based on a review of the patient's chart and discussion with members of the patient's treatment team, telemedicine via real-time, 2 way, and interactive audio and video platform is an appropriate and effective means of providing the service. ?The patient and I mutually agree this visit is appropriate for telemedicine. ?The virtual encounter was taken place from? [place], [place]. ?The encounter took approximately 35 minutes. ?The nurse was present during the entire time and I was able to move the stethoscope in appropriate directions. ?The patient was evaluated at the Hospital ? Portions of this note may be dictated using [employer] voice recognition software. Variances in spelling and vocabulary are possible and unintentional. Not all errors may be caught and/or corrected. Please notify the author if any discrepancies are noted and/or if the meaning of any statement is unclear.? ? Patient verbally consented for treatment via video visit with patient currently located at the [facility] and provider located in [place]. Telemedicine Attestation Telemedicine Attestation I conducted this encounter from [[place]] via secure live, [id number] video conference with the patient, located at [facility] with [COPD exacerbation]. Prior to the interview, the risks and benefits of telemedicine were discussed with the patient and verbal consent was obtained.
[2022-11-22 00:21] LABS: Base Excess ABG 5.3 mmol/L (-2.0-2.0); HCO3 ABG 34.3 mmol/L (22.0-26.0); PO2 ABG 74.3 mmHg (80.0-100.0)
[2022-11-22 00:22] LABS: Allen Test POSITIVE (POSITIVE); BIPAP Pressure 16/8; Fractionated Inspired Oxygen 50 %; O2 Mode BIPAP; Oxygen Saturation ABG 91.9 %; Puncture Site R RADIAL
[2022-11-22 00:23] LABS: pH ABG 7.138 (7.350-7.450)
[2022-11-22 00:48] LABS: Sodium 117 mmol/L (136-145)
[2022-11-22 00:49] LABS: Troponin I High Sensitivity 94.1 pg/mL (4.0-76.1)
[2022-11-22] MEDS: ETOMIDATE 20 MG/10 ML VIAL IVP (01:15)
--- NOTE | 2022-11-22 01:32 | XR_ITS ---
The [address] [address] Patient Name: JIM BOOTH MRN: [id number] date: 1960 Sex: M Assigned Patient Location: ICU Current Patient Location: ICU Accession/Order Number: [id number] Exam Date: 11/22/2022 01:36 Report Date: 11/22/2022 02:01 At the request of: ANGUS MAYORGA Procedure: XR chest 1V CHEST X-RAY HISTORY: Chest pain COMPARISON: 11/21/2022 TECHNIQUE: 1 view chest is submitted for review. FINDINGS: Endotracheal tube tip at the level the clavicle. The lungs are adequately expanded. No effusion. There is prominence of interstitial lung markings seen throughout bilateral lungs. The cardiac silhouette is enlarged. Pulmonary vascularity is mildly prominent. Osseous structures do not demonstrate any acute abnormality. . XR/XR chest 1V IMPRESSION: 1. Cardiomegaly. 2. Prominence of interstitial lung markings. Please correlate for fluid overload, viral pneumonia and/or chronic interstitial lung disease. Electronically authenticated by: DANETTE CUEVAS Date: 11/22/2022 02:01
[2022-11-22] MEDS: PROPOFOL 1,000 MG/100 ML VIAL 20.61 MG IV (01:45)
[2022-11-22] MEDS: 0.9 % SODIUM CHLORIDE 1,000 ML 50 ML IV (01:45)
[2022-11-22 02:40] LABS: Allen Test POSITIVE (POSITIVE); Fractionated Inspired Oxygen 50 %; HCO3 ABG 33.2 mmol/L (22.0-26.0); O2 Mode VENTILATOR; Oxygen Saturation ABG 98.3 %; Puncture Site R RADIAL; Rate 16; Vent Mode A/C
[2022-11-22 02:41] LABS: Tidal Volume 600; pH ABG 7.253 (7.350-7.450)
[2022-11-22 02:42] LABS: ABG PCO2 75.3 mmHg (35.0-45.0)
--- NOTE | 2022-11-22 02:52 | RESP.RT ---
fio2 decreased to 40% from 50%. Patient tolerating well
--- NOTE | 2022-11-22 02:53 | RESP.RT ---
ET tube advanced to [address] Falcon's order
--- NOTE | 2022-11-22 02:54 | PC.NURSE ---
spoke with patients daughter Belle regarding intubation and plans to transfer pt to tertiary facility
[2022-11-22] MEDS: PROPOFOL 1,000 MG/100 ML VIAL 41.22 MG IV (03:51)
[2022-11-22 04:36] LABS: Hematocrit 53.4 % (42.0-54.0); Hemoglobin 17.3 g/dL (14.0-18.0); Immature Granulocytes Abs Auto 0.03 10^3/uL (0.00-0.03); Immature Granulocytes Pct Auto 1.1 % (0.0-0.5); Lymphocytes Absolute Auto 0.4 10^3/uL (1.2-3.8); Lymphocytes Percent Auto 14.8 % (20.5-60.0); Mean Corpuscular HGB Conc 32.4 g/dL (29.9-35.2); Mean Corpuscular Hemoglobin 32.6 pg (25.9-34.0); Mean Corpuscular Volume 100.8 fL (80.0-94.0); Monocytes Absolute Auto 0.1 10^3/uL (0.3-0.8); Monocytes Percent Auto 4.5 % (1.7-12.0); Neutrophils Absolute Auto 2.1 10^3/uL (1.4-6.5); Neutrophils Percent Auto 79.6 % (43.0-75.0); Platelet Count 143 10^3/uL (150-450); Red Cell Distribution Width 13.2 % (11.0-15.0); White Blood Count 2.6 10^3/uL (4.0-11.0)
[2022-11-22 04:43] LABS: BUN Creatinine Ratio 34.7; Carbon Dioxide 32.2 mmol/L (21.0-32.0); Chloride 89 mmol/L (98-107); Estimated GFR (African America >60 (>=60); Estimated GFR (Non-African Ame >60 (>=60); Glucose 129 mg/dL (74-106); Potassium 5.2 mmol/L (3.5-5.1)
[2022-11-22 04:51] LABS: Sodium 122 mmol/L (136-145)
--- NOTE | 2022-11-22 05:10 | PC.NURSE ---
report called to ICU floor. Pt left stable in care of Critical care transport team. Pt daughter Belle updated on transfer information
[2022-11-22 05:25] LABS: Sodium Urine Random <5 mmol/L (30-90)
[2022-11-22 15:50] LABS: SARS-CoV-2 NAA NOT DETECTED (NOT DETECTE)
[2022-11-23 09:10] LABS: Albumin, Urine 162.3 ug/mL (Not Estab.); Creatinine, Urine 51.2 mg/dL (Not Estab.)
[2022-11-23 17:07] LABS: Osmolality, Urine 446 mOsmol/kg (.)
== END 2022-11-22 04:50 | disposition short-term general hospital (02) | DRG 208 ==
LOC: ER 19:11 → ICU 23:06
PROVIDERS: Personal Emergency Response Attendant; Admitting Provider Internal Medicine; Emergency Provider Emergency Medicine; PCP Family Medicine; Visit Provider Family Medicine
DX: J44.1 Chronic obstructive pulmonary disease with (acute) exacerbation (principal); J96.91 Respiratory failure, unspecified with hypoxia; J96.02 Acute respiratory failure with hypercapnia; E87.1 Hypo-osmolality and hyponatremia; R79.89 Other specified abnormal findings of blood chemistry; F17.200 Nicotine dependence, unspecified, uncomplicated; Z88.0 Allergy status to penicillin
CPT/HCPCS: 36415; 36600; 51702; 71045; 71275; 80048; 80053; 81001; 82805; 83605; 83880; 83930; 83935; 84295; 84300; 84484; 85025; 85378; 85610; 85730; 87040; 87070; 87086; 87205; 87635; 87804; 87811; 93005; 94002; 94640; 94660; 96365; 96366; 96367; 96368; 96375; 96376; 99285; J0456; J2930; Q3014; Q9967; U0003